=== PATIENT | female | born 1980 | race Caucasian/White ===

== ENCOUNTER → 2024-02-28 | Outpatient (CLI) | payer BC, SELFPAY ==
--- NOTE | 2024-02-28 15:09 | DI.MG.S_ITS ---
BILATERAL DIGITAL SCREENING MAMMOGRAM 3D/2D WITH CAD: 02/28/2024 CLINICAL: Routine screening. Family history of breast cancer. No prior exams were available for comparison. There are scattered areas of fibroglandular density in both breasts (category b / 25%-50% glandular tissue). Current study was also evaluated with a Computer Aided Detection (CAD) system. No significant masses, calcifications, or other findings are seen in either breast. IMPRESSION: NEGATIVE There is no mammographic evidence of malignancy. A 1 year screening mammogram is recommended. Based on the Tyrer Cuzick model (a risk assessment model) the patient's lifetime risk is 14.5% and her 10 year risk is 2.0%. According to the ACR, ACS, and NCCN guidelines, an annual breast MRI exam along with mammogram is recommended if the patient's lifetime risk is 20% or greater. This exam was interpreted at Station ID: [id number]. NOTE: For mammograms, a report in lay terms will be sent to the patient. Approximately 15% of breast malignancies will not be visualized mammographically. In the management of a palpable breast mass, a negative mammogram must not discourage biopsy of a clinically suspicious lesion. Electronically Signed By: Swetha iverson/kathy:03/05/2024 15:24:24 letter sent: Normal Exam ACR BI-RADS Category 1: Negative [id number]
== END ==
LOC: MAMMO 15:09
PROVIDERS: PCP Family Medicine; Referring Provider Family Medicine; Visit Provider Family Medicine
DX: Z12.31 Encounter for screening mammogram for malignant neoplasm of breast (principal); Z80.3 Family history of malignant neoplasm of breast; R92.323 Mammographic fibroglandular density, bilateral breasts
CPT/HCPCS: 77063; 77067

== ENCOUNTER → 2024-03-09 07:48 | Outpatient (CLI) | payer BC, SELFPAY ==
[2024-03-09 09:11] LABS: Alanine Aminotransferase 24 IU/L (<35); Albumin 4.4 g/dL (3.5-5.0); Albumin Globulin Ratio 1.4 (1.0-2.8); Alkaline Phosphatase 69 U/L (38-126); Aspartate Aminotransferase 22 IU/L (14-36); BUN Creatinine Ratio 25.9 (6-22); Bilirubin Total 0.6 mg/dL (0.2-1.3); Blood Urea Nitrogen 14 mg/dL (7-17); Calcium 9.3 mg/dL (8.4-10.2); Carbon Dioxide 27 mmol/L (22-32); Chloride 110 mmol/L (98-107); Cholesterol 213 mg/dL (140-199); Estimated Glomerular Filt Rate > 60 mL/min (>60); Globulin 3.1 g/dL (1.7-4.1); Glucose 111 mg/dL (70-100); HDL Cholesterol 44 mg/dL (40-60); HEMOLYSIS < 15 (0-50); LDL Cholesterol Calculated 151 mg/dL (<100); Potassium 3.8 mmol/L (3.4-5.1); Sodium 140 mmol/L (137-145); Total Protein 7.5 g/dL (6.3-8.2); Triglycerides 88 mg/dL (35-150)
[2024-03-09 09:34] LABS: TSH w/ Reflex to FT4 2.55 uIU/mL (0.47-4.68)
== END ==
PROVIDERS: PCP Family Medicine; Referring Provider Family Medicine; Visit Provider Family Medicine
DX: R73.03 Prediabetes (principal); E66.01 Morbid (severe) obesity due to excess calories; Z00.00 Encounter for general adult medical examination without abnormal findings; Z13.220 Encounter for screening for lipoid disorders
CPT/HCPCS: 36415; 80053; 80061; 84443

== ENCOUNTER → 2024-09-21 10:52 | Outpatient (CLI) | payer OTHER, SELFPAY | PROVIDERS: PCP Family Medicine; Referring Provider Physician Assistant Medical; Visit Provider Physician Assistant Medical | DX: R30.0 Dysuria (principal); N30.01 Acute cystitis with hematuria | CPT/HCPCS: 87086 ==

== ENCOUNTER → 2024-10-03 16:33 | Outpatient (CLI) | payer OTHER, SELFPAY ==
[2024-10-05 13:11] LABS: Candida species Negative (Negative); Gardnerella vaginalis Negative (Negative); Trichomoas vaginalis Negative (Negative)
== END ==
PROVIDERS: PCP Family Medicine; Visit Provider Obstetrics & Gynecology
DX: R10.2 Pelvic and perineal pain (principal); N81.10 Cystocele, unspecified
CPT/HCPCS: 87480; 87491; 87510; 87563; 87591; 87660

== ENCOUNTER 2025-04-11 09:28 | Emergency (ER) | payer OTHER, SELFPAY ==
[2025-04-11 09:45] VITALS: BP 165/69; PULSE 79; RESP 16; TEMP 36.6; O2SAT 98
--- NOTE | 2025-04-11 12:22 | ED.HA ---
HPI - Headache <Ashlyn Esteves PA-C - Last Filed: 04/11/25 14:45> General Chief Complaint: Headache Stated Complaint: Sent by MD; Traveling Pain in Head Time Seen by Provider: 04/11/25 12:22 Mode of arrival: Ambulatory History of Present Illness HPI Narrative: Ms. Hancock is a very pleasant 44-year-old female with a past medical history of prediabetes, obesity, anxiety who presents to the emergency department for headache x2 days. Patient reports on Tuesday she gradually developed a pressure-like headache that started behind the right eye and gradually got worse throughout the day at work. This caused her to go home from work early. She took 400 mg ibuprofen x2 which typically relieves any mild headache she gets but this did not help at all. She went to an urgent Care Tuesday evening and had a normal neurologic exam, they treated her with Toradol which she states worked within 15 minutes and improved her headache but she continued to have nausea without vomiting for the next day. Today her headache returned and is in the back of her head and radiates behind her left eye and she also continues to be nauseous. She denies any other associated symptoms such as vomiting, lightheadedness, dizziness, ear pain, visual disturbance, chest pain, shortness of breath, fevers, chills, sore throat, flu-like symptoms. No trauma to the head. She denies any changes in her normal routine on Tuesday however that morning she did switch from taking to 15 mg pills of phentermine for weight loss to one 30 mg pill of phentermine for weight loss. Her BP is noted ot be slightly elevated in the ED, she denies a prior diagnosis of hypertension but notes that her blood pressure has been more elevated at work the last 2 days but she has been in pain during this time. Related Data Home Medications Medication Instructions Recorded Confirmed levonorgestrel 21 mcg/24 hr (up to intrauterine 10/03/24 03/28/25 8 years) 52 mg intrauterine device (Mirena) Previous Rx's Medication Instructions Recorded phentermine 30 mg capsule 30 mg PO DAILY #30 caps 03/28/25 ondansetron 4 mg disintegrating 4 mg PO Q8H PRN nausea and 04/11/25 tablet vomiting #20 tabs Allergies Allergy/AdvReac Type Severity Reaction Status Date / Time metformin AdvReac Mild Diarrhea Verified 01/23/25 09:05 Review of Systems <Ashlyn Esteves PA-C - Last Filed: 04/11/25 14:45> Review of Systems ROS Unobtainable: All systems reviewed & are unremarkable except as noted in HPI and below Patient History <Ashlyn Esteves PA-C - Last Filed: 04/11/25 14:45> Medical History Strain of left knee Left knee pain IUD (intrauterine device) in place Rosacea (~2022) Anxiety (~2016) Chicken pox (~1991) Surgical History Anesthesia History of cholecystectomy (~2012) Family History Mother Diabetes mellitus Hypertension Hyperlipidemia Mental health problem Grandfather History of heart disease Grandmother Cancer Grandfather History of heart disease Grandmother History of heart disease Social History Smoking Status: Never smoker Smoking Status: Never smoker tobacco type: cigarettes Exam <Ashlyn Esteves PA-C - Last Filed: 04/11/25 14:45> Narrative Exam Narrative: GENERAL: 44 year old patient appears stated age. Well-developed patient, in no acute distress. HEAD: Atraumatic. Normocephalic. No rashes or lesions on posterior scalp. EYES: PERRL. Extraocular motions intact. No scleral icterus. No injection or drainage. ENT: Nose without bleeding, purulent drainage. Airway patent. NECK: Trachea midline. Cervical ROM intact. No meningismus. CARDIOVASCULAR: Regular rate and rhythm. RESPIRATORY: ?Nonlabored respirations. ?Speaking in clear, full sentences. ?Clear to auscultation. Breath sounds equal bilaterally. No wheezes, rales, or rhonchi. ? GASTROINTESTINAL: Abdomen soft, non-tender, nondistended. EXTREMITIES: No edema or joint tenderness. NEURO: AOx3. ?Clear speech. ?Moves all 4 extremities appropriately. No facial asymmetry. Normal [id number], heel-rios. No pronator drift. Sensation intact to light touch throughout the face and extremities. SKIN: No rash or erythema of visible areas Initial Vital Signs Initial Vital Signs: Vital Signs Temperature 97.8 F 04/11/25 09:45 Pulse Rate 79 04/11/25 09:45 Respiratory Rate 16 04/11/25 09:45 Blood Pressure 165/69 H 04/11/25 09:45 Pulse Oximetry 98 04/11/25 09:45 Oxygen Delivery Method Room Air 04/11/25 09:45 <Dick Swanson MD - Last Filed: 04/11/25 19:13> Initial Vital Signs Initial Vital Signs: Vital Signs Temperature 97.8 F 04/11/25 09:45 Pulse Rate 79 04/11/25 09:45 Respiratory Rate 16 04/11/25 09:45 Blood Pressure 165/69 H 04/11/25 09:45 Pulse Oximetry 98 04/11/25 09:45 Oxygen Delivery Method Room Air 04/11/25 09:45 Course <Ashlyn Esteves PA-C - Last Filed: 04/11/25 14:45> Orders Ordered: ED Orders 04/11/25 12:34 CT head/brain wo con Stat Discontinued Medications Acetaminophen (Acetaminophen 325 Mg Tablet) 975 mg PO NOW ONE Stop: 04/11/25 12:35 Last Admin: 04/11/25 12:46 Dose: 975 mg Documented By: BERNIE Dexamethasone (Dexamethasone 10 Mg/Ml Vial) 10 mg IV NOW ONE Stop: 04/11/25 12:35 Last Admin: 04/11/25 12:47 Dose: 10 mg Documented By: BERNIE Diphenhydramine HCl (Diphenhydramine 50 Mg/Ml Vial) 25 mg IV NOW ONE Stop: 04/11/25 12:35 Last Admin: 04/11/25 12:47 Dose: 25 mg Documented By: BERNIE Sodium Chloride (Normal Saline 0.9%) 1,000 mls @ 1,000 mls/hr IV BOLUS ONE Stop: 04/11/25 13:33 Last Admin: 04/11/25 12:46 Dose: 1,000 mls/hr Documented By: BERNIE Metoclopramide HCl (Metoclopramide 10 Mg/2 Ml Inj) 10 mg IV NOW ONE Stop: 04/11/25 12:35 Last Admin: 04/11/25 12:47 Dose: 10 mg Documented By: BERNIE Vital Signs Vital signs: Vital Signs - 8 hr 04/11/25 13:53 Temperature 98.5 F Pulse Rate 65 Respiratory Rate 19 Blood Pressure 112/56 L Pulse Oximetry 98 Oxygen Delivery Method Room Air <Dick Swanson MD - Last Filed: 04/11/25 19:13> Orders Ordered: ED Orders 04/11/25 12:34 CT head/brain wo con Stat Discontinued Medications Acetaminophen (Acetaminophen 325 Mg Tablet) 975 mg PO NOW ONE Stop: 04/11/25 12:35 Last Admin: 04/11/25 12:46 Dose: 975 mg Documented By: BERNIE Dexamethasone (Dexamethasone 10 Mg/Ml Vial) 10 mg IV NOW ONE Stop: 04/11/25 12:35 Last Admin: 04/11/25 12:47 Dose: 10 mg Documented By: BERNIE Diphenhydramine HCl (Diphenhydramine 50 Mg/Ml Vial) 25 mg IV NOW ONE Stop: 04/11/25 12:35 Last Admin: 04/11/25 12:47 Dose: 25 mg Documented By: BERNIE Sodium Chloride (Normal Saline 0.9%) 1,000 mls @ 1,000 mls/hr IV BOLUS ONE Stop: 04/11/25 13:33 Last Admin: 04/11/25 12:46 Dose: 1,000 mls/hr Documented By: BERNIE Metoclopramide HCl (Metoclopramide 10 Mg/2 Ml Inj) 10 mg IV NOW ONE Stop: 04/11/25 12:35 Last Admin: 04/11/25 12:47 Dose: 10 mg Documented By: BERNIE Vital Signs Vital signs: Vital Signs - 8 hr 04/11/25 13:53 Temperature 98.5 F Pulse Rate 65 Respiratory Rate 19 Blood Pressure 112/56 L Pulse Oximetry 98 Oxygen Delivery Method Room Air MDM - Headache <Ashlyn Esteves PA-C - Last Filed: 04/11/25 14:45> Medical Records Attestation: I reviewed the patient's medical records. Medical records narrative: Reviewed prior family practice visits. Imaging Data CT scan - head: Radiologist's Impression: PROCEDURE: CT HEAD/BRAIN WO CON INDICATIONS: new onset PETERSON; N TECHNIQUE: Noncontrast 4.5 mm thick angled axial sections acquired from the foramen magnum to the vertex, with coronal and sagittal reformats. For radiation dose reduction, the following was used: automated exposure control, adjustment of mA and/or kV according to patient size. COMPARISON: None. FINDINGS: Image quality: Diagnostic. CSF spaces: Basal cisterns are patent. No extra-axial fluid collections. Ventricles are normal in size and shape. Brain: No midline shift. No intracranial mass effect or hemorrhage. Carrion-white matter interface is normal. Skull and face: Calvarium and visualized facial bones are intact, without suspicious lesions. Sinuses: Visualized sinuses and mastoids are clear. IMPRESSION: No acute intracranial pathology. Dictated by: Rufus Noriega M.D. on 04/11/2025 at 13:07 Approved by: Rufus Noriega M.D. on 04/11/2025 at 13:08 MDM Narrative Medical decision making narrative: 44-year-old female with a past medical history of prediabetes, obesity, anxiety who presents to the emergency department for headache x2 days. Differential diagnosis includes but is not limited to medication side effect, tension headache, migraine headache, intracranial abnormality, etc. On exam patient is in no acute distress, nontoxic appearing, vital signs appropriate except for mildly elevated blood pressure. She has no focal neurologic deficits, at this time she is describing a pressure-like headache in the occipital regions spreading you had the left eye with the associated nausea, previously relief with Toradol but returned. She has no history of migraine headaches are regular headaches, there was no trauma. Given new onset headache, we will obtain imaging of the head, we will treat with migraine cocktail consisting of Tylenol, Reglan, fluids, Benadryl, Decadron to prevent recurrent headaches. Patient's headache resolved after treatment, CT scan head negative. Recommended use of naproxen, Tylenol, Zofran together if needed for breakthrough headache at home, follow up with PCP for further evaluation. Discussed strict ED return precautions. Patient verbalized understanding all information agreeable with the friend, she is stable for discharge home, blood pressure improved. Discharge Plan Departure Patient Disposition: Home Clinical Impression: Acute nonintractable headache Qualifiers: Headache type: tension-type Qualified Code(s): G44.209 - Tension-type headache, unspecified, not intractable Instructions: DI for Migraine Activity Restrictions/Additional Instructions: Dear Santi, Thank you for coming to the emergency department. Today you were evaluated for migraine type headache, the CT scan of your head was normal, and you improved from IV migraine cocktail treatment. I would like you to take naproxen or ibuprofen and Tylenol/acetaminophen and Zofran together to help with recurrent symptoms. However if you develop new or much worsening symptoms I want you to return to the emergency department. Please take Ibuprofen (Motrin/Advil) or Acetaminophen (Tylenol) for pain. These are available over the counter. You may take Ibuprofen 600 mg every 8 hours with food for pain. You may also take Acetaminophen 650 mg every 4-6 hours for pain. Do not exceed 3000 mg of Tylenol a day as this can cause liver damage. Do not drink alcohol with either of these medications. Please follow up with the primary care doctor as soon as possible for further evaluation, blood pressure check, and medication management. Please follow up with your primary care doctor within the next 2-3 days for ER follow-up. (If you do not have a PCP you can call [phone]. ?to schedule an appointment with an [facility] Primary Care Provider) IF YOU DEVELOP ANY NEW OR WORSENING SYMPTOMS, RETURN TO THE ER! Please read the attached instructions, they highlight more specific treatments and interventions for you at home. Thank you for letting me participate in your care, Ashlyn Esteves PA-C Prescriptions: New ondansetron 4 mg tablet,disintegrating 4 mg PO Q8H PRN (Reason: nausea and vomiting) Qty: 20 0RF No Action phentermine 30 mg capsule 30 mg PO DAILY Qty: 30 0RF Rx Instructions: Earliest fill 04/03 for dose increase must administer 2 hours after breakfast Mirena 21 mcg/24 hr (8 yrs) 52 mg intrauterine device intrauterine Referrals: Zakia Ventura MD [Primary Care Provider] - Stand Alone Forms: Patient Portal/API/Survey ED Sign-out <Dick Swanson MD - Last Filed: 04/11/25 19:13> Cosign ED Attending Cosignature Attestation: I was immediately available in the department for consultation. This documentation has been reviewed and I agree with assessment and plan. Supervised by Dick Swanson MD
--- NOTE | 2025-04-11 12:34 | DI.CT.S_ITS ---
PROCEDURE: CT HEAD/BRAIN WO CON INDICATIONS: new onset PETERSON; N TECHNIQUE: Noncontrast 4.5 mm thick angled axial sections acquired from the foramen magnum to the vertex, with coronal and sagittal reformats. For radiation dose reduction, the following was used: automated exposure control, adjustment of mA and/or kV according to patient size. COMPARISON: None. FINDINGS: Image quality: Diagnostic. CSF spaces: Basal cisterns are patent. No extra-axial fluid collections. Ventricles are normal in size and shape. Brain: No midline shift. No intracranial mass effect or hemorrhage. Carrion-white matter interface is normal. Skull and face: Calvarium and visualized facial bones are intact, without suspicious lesions. Sinuses: Visualized sinuses and mastoids are clear. IMPRESSION: No acute intracranial pathology. Dictated by: Rufus Noriega M.D. on 04/11/2025 at 13:07 Approved by: Rufus Noriega M.D. on 04/11/2025 at 13:08
[2025-04-11] MEDS: SODIUM CHLORIDE 0.9% 1,000 ML 1000 ML IV (12:46)
[2025-04-11] MEDS: ACETAMINOPHEN 325 MG TABLET 975 MG PO (12:46)
[2025-04-11] MEDS: METOCLOPRAMIDE 10 MG/2 ML INJ IV (12:47)
[2025-04-11] MEDS: DEXAMETHASONE 10 MG/ML VIAL IV (12:47)
[2025-04-11] MEDS: diphenhydrAMINE 50 MG/ML VIAL 25 MG IV (12:47)
[2025-04-11 13:53] VITALS: BP 112/56; PULSE 65; RESP 19; TEMP 36.9; O2SAT 98
== END 2025-04-11 13:54 | disposition home or self-care (01) ==
PROVIDERS: Emergency Provider Physician Assistant; PCP Family Medicine
DX: G44.209 Tension-type headache, unspecified, not intractable (principal)
CPT/HCPCS: 36415; 70450; 96361; 96374; 96375; 99284; J1100; J1200; J2765

== ENCOUNTER → 2025-10-24 12:51 | Outpatient (CLI) | payer OTHER, SELFPAY ==
--- NOTE | 2025-10-24 12:52 | DI.MG.S_ITS ---
MM screening mammo BI: 10/24/2025. BI-RADS: 1 CLINICAL: 44-year old female for bilateral screening mammogram. Tyrer-Cuzick lifetime risk of 11.4%. No personal or first-degree family history of breast cancer. Current reported family history of breast cancer: maternal grandmother and paternal aunt. PRIOR EXAMS 02/28/2024. MAMMOGRAPHY TECHNIQUE: 2D and 3D (tomosynthesis) digital mammographic views obtained, with additional images as needed for full coverage. Current study was also evaluated with a Computer Aided Detection (CAD) system. DENSITY A. The breasts are almost entirely fatty. MAMMOGRAPHY FINDINGS Bilateral: No suspicious mass, asymmetry, microcalcification, or other abnormality seen. IMPRESSION: * No evidence of malignancy. RECOMMENDATIONS Bilateral * Annual screening mammography. OVERALL ASSESSMENT CATEGORY BI-RADS-1: Negative. The [employer] recommends annual screening mammography beginning at age 40 for women with average risk of breast cancer. ELECTRONICALLY SIGNED: Shaun Tai M.D. on 10/25/2025 at 01:15:18 AM PT Interpreting Station ID: [id number]
== END ==
LOC: MAMMO 12:52
PROVIDERS: PCP Family Medicine; Referring Provider Family Medicine; Visit Provider Family Medicine
DX: Z12.31 Encounter for screening mammogram for malignant neoplasm of breast (principal); R92.313 Mammographic fatty tissue density, bilateral breasts; Z80.3 Family history of malignant neoplasm of breast
CPT/HCPCS: 77063; 77067